=== PATIENT | male | born 1945 | race Caucasian/White ===

== ENCOUNTER 2018-07-05 06:51 | Inpatient (IN) | payer OTHER ==
[~2018-07-05] VITALS: Ht 177.8 cm; Wt 96.5 kg
[~2018-07-05 06:51] MED LIST: ACET-76 PO; ATOR40TA78 PO; BACITRACIN 50,000 UNIT ONE; BUPIVACAINE/PF-EPI 0.5% 1:200K ONE; CALC0.25 PO; DICL100G19 TD; FINA5TAB4 PO; GABA400C PO; MAGN250T8 PO; METF500T17 PO; METO25TA35 PO; OMEP-110 PO; POTA99TA3 PO; TAMS0.4C2 PO; THROMBIN 5,000 UNIT VIAL TP ONE; TRAZ-137 PO; VANCOMYCIN 1,000 MG ONE
[2018-07-05 07:29] VITALS: BP 125/78
[2018-07-05] MEDS ORDERED: FENTANYL PF 250 MCG/5ML ONE (07:43)
[2018-07-05] MEDS ORDERED: MIDAZOLAM 1 MG/ML, 2ML ONE (07:43)
[2018-07-05] MEDS ORDERED: LACTATED RINGERS 1,000 ML IV SCH (07:47)
[2018-07-05] MEDS ORDERED: ONDANSETRON 2MG/ML, 2ML ONE (09:19)
[2018-07-05] MEDS ORDERED: CEFAZOLIN 1,000 MG ONE (09:19)
[2018-07-05] MEDS ORDERED: NEOSTIGMINE 1 MG/ML, 10ML ONE (09:19)
[2018-07-05] MEDS ORDERED: GLYCOPYRROLATE 0.2MG/1ML, 5ML ONE (09:19)
[2018-07-05] MEDS ORDERED: ROCURONIUM 10 MG/ML,10ML ONE (09:19)
[2018-07-05] MEDS ORDERED: PROPOFOL 10 MG/ML, 20ML ONE (09:19)
[2018-07-05] MEDS ORDERED: SUCCINYLCHOLINE 20 MG/ML, 10ML ONE (09:19)
[2018-07-05] MEDS ORDERED: KETOROLAC 30 MG/1 ML IV PRN (10:00)
[2018-07-05] MEDS ORDERED: HYDROmorphone 1 MG/ML, 1ML IV PRN (10:00)
[2018-07-05] MEDS ORDERED: LABETALOL 5MG/ML, 20ML IV PRN (10:00)
[2018-07-05] MEDS ORDERED: PROMETHAZINE 25 MG/ML, 1ML IV PRN (10:00)
[2018-07-05] MEDS ORDERED: OXYcodone 5 MG/5 ML ORAL.SOL UDC PO PRN (10:00)
[2018-07-05] MEDS ORDERED: METOCLOPRAMIDE 5 MG/ML, 2ML IV PRN (10:00)
[2018-07-05] MEDS ORDERED: ALBUTEROL SULFATE 2.5 MG/3 ML NPPB PRN (10:00)
[2018-07-05] MEDS ORDERED: MEPERIDINE/PF 25MG/0.5ML IVPush PRN (10:00)
[2018-07-05] MEDS ORDERED: hydrALAzine 20 MG/ML, 1ML IV PRN (10:00)
[2018-07-05] MEDS ORDERED: ONDANSETRON 2MG/ML, 2ML IVPush PRN (10:00)
[2018-07-05] MEDS ORDERED: FENTANYL PF 100 MCG/2ML ONE (11:23)
[2018-07-05] MEDS ORDERED: OXYcodone 5 MG/5 ML ORAL.SOL UDC ONE (11:23)
[2018-07-05] MEDS: FENTANYL PF 100 MCG/2ML IV PRN ×2 (11:26→11:37)
== END 2018-07-05 14:50 | disposition home or self-care (01) | DRG 515 ==
LOC: ORIP 06:51 → 3WST 16:28
PROVIDERS: ADMIT Neurological Surgery; ATTEND Neurological Surgery
PROC: 01NB0ZZ Release Lumbar Nerve, Open Approach (ICD-10-PCS; principal; 2018-07-05 09:30)
DX: M48.061 Spinal stenosis, lumbar region without neurogenic claudication (principal); R53.2 Functional quadriplegia; M54.16 Radiculopathy, lumbar region; M85.68 Other cyst of bone, other site; M54.32 Sciatica, left side; M54.31 Sciatica, right side; M43.16 Spondylolisthesis, lumbar region; I25.10 Atherosclerotic heart disease of native coronary artery without angina pectoris; I10 Essential (primary) hypertension; K21.9 Gastro-esophageal reflux disease without esophagitis; E78.5 Hyperlipidemia, unspecified; E11.9 Type 2 diabetes mellitus without complications; M19.90 Unspecified osteoarthritis, unspecified site; M10.9 Gout, unspecified; N40.0 Benign prostatic hyperplasia without lower urinary tract symptoms; Z91.041 Radiographic dye allergy status; Z87.01 Personal history of pneumonia (recurrent); Z82.49 Family history of ischemic heart disease and other diseases of the circulatory system; Z82.61 Family history of arthritis; Z83.6 Family history of other diseases of the respiratory system; I25.2 Old myocardial infarction
CPT/HCPCS: 72100; J3490; 82962; C1729; J0690; J2250; J2405; J2704; J2710; J3010; J3370; J0330

== ENCOUNTER 2021-01-21 08:27 | Outpatient (CLI) | payer OTHER ==
[~2021-01-21 08:27] MED LIST changes: -BACITRACIN 50,000 UNIT ONE; -BUPIVACAINE/PF-EPI 0.5% 1:200K ONE; -THROMBIN 5,000 UNIT VIAL TP ONE; -TRAZ-137 PO; +TRAZ-175 PO; -VANCOMYCIN 1,000 MG ONE
== END 2021-01-21 23:59 | disposition home or self-care (01) ==
LOC: CVU 08:27
PROVIDERS: ATTEND Internal Medicine Cardiovascular Disease
DX: Z01.810 Encounter for preprocedural cardiovascular examination (principal); I06.1 Rheumatic aortic insufficiency; R94.31 Abnormal electrocardiogram [ECG] [EKG]; I11.9 Hypertensive heart disease without heart failure
CPT/HCPCS: 93306

== ENCOUNTER 2021-02-10 10:18 | Observation (INO) | payer OTHER ==
[~2021-02-10] VITALS: Ht 177.8 cm; Wt 95.5 kg
[2021-02-11 18:28] VITALS: BP 135/78
== END 2021-02-12 23:59 | disposition still patient (30) ==
LOC: CACL 10:18 → 5SO 16:51 → CACL 23:32
PROVIDERS: ADMIT Internal Medicine Cardiovascular Disease; ATTEND Internal Medicine Cardiovascular Disease
DX: I25.10 Atherosclerotic heart disease of native coronary artery without angina pectoris (principal); I10 Essential (primary) hypertension; E78.5 Hyperlipidemia, unspecified; E11.40 Type 2 diabetes mellitus with diabetic neuropathy, unspecified; M10.9 Gout, unspecified; Z95.1 Presence of aortocoronary bypass graft; M54.9 Dorsalgia, unspecified; Z79.899 Other long term (current) drug therapy; Z87.891 Personal history of nicotine dependence; Z90.5 Acquired absence of kidney